=== PATIENT | female | born 1980 | race Caucasian/White ===

== ENCOUNTER 2018-08-26 15:28 | Emergency (ER) | payer MEDICAID ==
[~2018-08-26] VITALS: Ht 172.7 cm; Wt 122.5 kg
[2018-08-26 15:41] VITALS: BP_SYST 144
--- NOTE | 2018-08-26 15:41 | NUR ---
Patient to ER bed 01 to gown for evaluation. Side rails up.
--- NOTE | 2018-08-26 15:45 | NUR ---
PATIENT LAYING IN BED COMPLAINING OF PAIN 10/10 NON RADIATING PAIN IN RIGHT LOWER ABD. PATIENT SAID IT STARTED ABOUT 45 MIN AFTER LUNCH. PATIENT SAID IT FEELS LIKE KIDNEY STONES BECAUSE SHE HAD THEM IN PAST. PATIENT SAID IT GETS WORST WHEN SHE TRIES TO PEE. PATIENT SAID SHE IS NAUSEAS. PATIENT NOT COMPLAINING OF SHORTNESS OF BREATH OR VOMITING. PATIENT ALERT AND ORIENTED X4.
--- NOTE | 2018-08-26 15:49 | NUR ---
ER Dr. CHEN at bedside examining patient.
[2018-08-26] MEDS ORDERED: MORPHINE 4 MG/ML INJ. SYRINGE IVP ONE (16:00)
[2018-08-26] MEDS ORDERED: ONDANSETRON HCL 4 MG/2 ML VIAL IVP ONE (16:00)
[2018-08-26] MEDS ORDERED: KETOROLAC TROMETHAMINE 30 MG VIAL IVP ONE (16:00)
[2018-08-26 16:02] LABS: BILIRUBIN,URINE NEGATIVE (NEGATIVE); BLOOD, URINE 1+ (NEGATIVE); CLARITY/URINE CLEAR (CLEAR); COLOR,URINE YELLOW (YELLOW); GLUCOSE,URINE NEGATIVE (NEGATIVE); KETONES,URINE NEGATIVE (NEGATIVE); LEUKOCYTE ESTERASE ,URINE NEGATIVE (NEGATIVE); NITRITE, URINE NEGATIVE (NEGATIVE); PROTEIN URINE NEGATIVE (NEGATIVE)
[2018-08-26 16:12] LABS: BACTERIA,URINE FEW /HPF (None Seen); RBC,URINE 0-3 /HPF (0-3)
--- NOTE | 2018-08-26 16:23 | NUR ---
PATIENT LEAVING TO CT
--- NOTE | 2018-08-26 16:31 | NUR ---
PATIENT BACK FROM CT
[2018-08-26 16:35] LABS: HEMATOCRIT 38.8 % (36-48); HEMOGLOBIN 12.8 g/dL (12.0-16.0); MEAN CORPUSCULAR HEMOGLOBIN 30 pg (27-31); MEAN CORPUSCULAR VOLUME 91 fL (79.0-98.0); RED BLOOD CELL COUNT(AUTO) 4.25 MIL/uL (4.2-6.2); WHITE BLOOD COUNT (AUTO) 8.2 K/uL (4.8-10.8)
[2018-08-26 16:36] LABS: MEAN CORPUSCULAR HGB CONC 33 % (32-36); PLATELET COUNT (AUTO) 194 K/uL (130-430); RED CELL DISTRIBUTION WIDTH 13.3 % (9.0-15.0)
[2018-08-26 16:37] LABS: BASOPHILS % (AUTO) 0.5 % (0.0-2.0); EOSINOPHILS % (AUTO) 2.3 % (0.0-4.0); LYMPHOCYTES # (AUTO) 1.6 K/uL (1.0-5.5); MONOCYTES # (AUTO) 0.5 K/uL (0.0-1.0); MONOCYTES % (AUTO) 6.1 % (1.7-9.3); NEUTROPHILS # (AUTO) 5.8 K/uL (1.8-7.7); NEUTROPHILS % (AUTO) 71.1 % (40.0-70.0)
[2018-08-26 16:38] LABS: EOSINOPHILS # (AUTO) 0.2 K/uL (0.0-0.4)
[2018-08-26 16:42] LABS: CALCIUM 8.7 mg/dL (8.4-11.0); CREATININE 0.85 mg/dL (0.55-1.30)
[2018-08-26 16:45] LABS: PROTHROMBIN TIME 9.9 SECS (9.5-12.5)
[2018-08-26 16:52] LABS: ALBUMIN 3.2 g/dL (3.4-4.8); TOTAL BILIRUBIN 0.2 mg/dL (0.0-1.0)
[2018-08-26 17:55] VITALS: BP_SYST 144
--- NOTE | 2018-08-26 17:55 | NUR ---
Patient given written and verbal discharge instructions and verbalizes understanding. ER MD discussed with patient the results and treatment provided. Patient in stable condition. ID arm band removed. IV catheter removed intact and dressing applied, no active bleeding. Rx of MOTRIN AND CIPRO given. Patient educated on pain management and to follow up with PMD. Pain Scale 2/10. Opportunity for questions provided and answered. Medication side effect fact sheet provided.
== END 2018-08-26 17:49 | disposition home or self-care (01) ==
LOC: SED 15:28
DX: N39.0 Urinary tract infection, site not specified (principal); R03.0 Elevated blood-pressure reading, without diagnosis of hypertension
CPT/HCPCS: 36415; 74176; 80053; 81000; 83690; 84702; 85025; 85610; 85730; 96374; 96375; 99284; J1885; J2270; J2405

== ENCOUNTER 2018-08-26 21:56 | Emergency (ER) | payer MEDICAID ==
[~2018-08-26] VITALS: Ht 172.7 cm; Wt 122.5 kg
[2018-08-26 22:43] VITALS: BP_SYST 150
[2018-08-26] MEDS ORDERED: NACL 0.9% 1,000 ML IV ONE (23:21)
--- NOTE | 2018-08-26 23:30 | NUR ---
2330 - Assumed care of pt. Pt states that she was here earlier today and was dx w/ UTI. Pt states symptoms feel similar to last time she had a kidney stone. Pt states that today she had a CT and was told that it did not show a kidney stone. Pt states pain is RLQ. 03/17, sharp. IV established, labs drawn. Awaiting MD ellington.
--- NOTE | 2018-08-26 23:30 | NUR ---
1569 - Patient to ER bed 3 to gown for evaluation. Side rails up.
[2018-08-26 23:51] LABS: HEMATOCRIT 39.1 % (36-48); HEMOGLOBIN 12.9 g/dL (12.0-16.0); MEAN CORPUSCULAR HEMOGLOBIN 30 pg (27-31); MEAN CORPUSCULAR HGB CONC 33 % (32-36); MEAN CORPUSCULAR VOLUME 91 fL (79.0-98.0); PLATELET COUNT (AUTO) 195 K/uL (130-430); RED BLOOD CELL COUNT(AUTO) 4.32 MIL/uL (4.2-6.2); RED CELL DISTRIBUTION WIDTH 13.2 % (9.0-15.0); WHITE BLOOD COUNT (AUTO) 12.2 K/uL (4.8-10.8)
[2018-08-26 23:52] LABS: BASOPHILS % (AUTO) 0.4 % (0.0-2.0); EOSINOPHILS # (AUTO) 0.1 K/uL (0.0-0.4); EOSINOPHILS % (AUTO) 0.6 % (0.0-4.0); LYMPHOCYTES % (AUTO) 7.9 % (20.5-51.5); MONOCYTES # (AUTO) 0.5 K/uL (0.0-1.0); MONOCYTES % (AUTO) 3.9 % (1.7-9.3); NEUTROPHILS # (AUTO) 10.7 K/uL (1.8-7.7); NEUTROPHILS % (AUTO) 87.2 % (40.0-70.0)
[2018-08-27 00:01] LABS: PROTHROMBIN TIME 9.9 SECS (9.5-12.5)
[2018-08-27 00:03] LABS: CALCIUM 8.4 mg/dL (8.4-11.0); CREATININE 1.01 mg/dL (0.55-1.30)
[2018-08-27 00:06] LABS: ALBUMIN 3.3 g/dL (3.4-4.8); TOTAL BILIRUBIN 0.2 mg/dL (0.0-1.0)
--- NOTE | 2018-08-27 01:10 | NUR ---
0110 - ER at bedside examining patient.
[2018-08-27] MEDS ORDERED: KETOROLAC TROMETHAMINE 30 MG VIAL IVP ONE (01:30)
[2018-08-27] MEDS ORDERED: NACL 0.9% 1,000 ML IV ONE ×2 (01:30→04:30)
[2018-08-27] MEDS ORDERED: ONDANSETRON HCL 4 MG/2 ML VIAL IVP ONE (01:30)
--- NOTE | 2018-08-27 01:44 | NUR ---
0144 - Pt medicated for nausea and pain. Up to use restroom. Encouraged to give urine sample. Ambulated w/ steady gait.
[2018-08-27 02:22] LABS: BILIRUBIN,URINE NEGATIVE (NEGATIVE); CLARITY/URINE CLEAR (CLEAR); COLOR,URINE YELLOW (YELLOW); GLUCOSE,URINE NEGATIVE (NEGATIVE); KETONES,URINE 1+ (NEGATIVE); LEUKOCYTE ESTERASE ,URINE NEGATIVE (NEGATIVE); NITRITE, URINE NEGATIVE (NEGATIVE); PROTEIN URINE TRACE (NEGATIVE)
[2018-08-27 02:23] LABS: BLOOD, URINE TRACE (NEGATIVE)
[2018-08-27 02:33] LABS: BACTERIA,URINE FEW /HPF (None Seen)
--- NOTE | 2018-08-27 03:00 | NUR ---
0300 - Pt resting quietly, no distress, awaiting MD re-eval. IV fluids continue to infuse.
[2018-08-27] MEDS ORDERED: MORPHINE 4 MG/ML INJ. SYRINGE IVP ONE (04:30)
[2018-08-27 05:48] VITALS: BP_SYST 124
--- NOTE | 2018-08-27 05:48 | NUR ---
0548 - Patient given written and verbal discharge instructions and verbalizes understanding. ER MD discussed with patient the results and treatment provided. Patient in stable condition. ID arm band removed. IV catheter removed intact and dressing applied, no active bleeding. Rx of norco given. Patient educated on pain management and to follow up with PMD. Pain Scale 4. Opportunity for questions provided and answered. Medication side effect fact sheet provided. A&OX4, ambulatory w/ steady gait
== END 2018-08-27 05:48 | disposition home or self-care (01) ==
LOC: SED 21:56
DX: N20.0 Calculus of kidney (principal); R03.0 Elevated blood-pressure reading, without diagnosis of hypertension; Z98.51 Tubal ligation status
CPT/HCPCS: 36415; 80053; 81000; 83690; 85025; 85610; 96374; 96375; 99283; J1885; J2270; J2405; J7030 ×2; 96361